=== PATIENT | male | born 1955 | race Caucasian/White ===

== ENCOUNTER 2021-10-13 20:14 | Inpatient (IN) | payer OTHER ==
[2021-10-13 20:56] LABS: Hemoglobin 15.4 g/dL (13.5-17.5); Mean Corpuscular HGB CONC 32.6 g/dL (32.0-36.0); Mean Corpuscular Hemoglobin 30.3 pg (27.0-33.0); Mean Corpuscular Volume 93.1 fl (81.2-95.1); Mean Platelet Volume 10.4 fl (7.4-10.4); Platelet Count 102 10x3/uL (150-450); RBC Distribution Width 14.9 % (11.5-14.5); Red Blood Cell (RBC) Count 5.08 10x6/uL (4.32-5.72); White Blood Cell (WBC) Count 4.5 10x3/uL (3.5-10.5)
[2021-10-13 21:05] LABS: ALT (SGPT) 24 U/L (8-55); AST (SGOT) 33 U/L (5-34); Albumin 3.4 g/dL (3.4-4.8); Alkaline Phosphatase 81 U/L (40-110); Anion Gap 10 mmol/L (10-20); BUN (Urea Nitrogen) 21 mg/dL (8.4-25.7); Bilirubin, Total 0.8 mg/dL (0.2-1.2); Calc. Creatinine Clearance 0 mL/min (70-130); Calcium 8.7 mg/dL (7.8-10.44); Carbon Dioxide 23 mmol/L (23-31); Chloride 108 mmol/L (98-107); Globulin 3.9 g/dL (2.4-3.5); Glucose 103 mg/dL (80-115); Protein, Total 7.3 g/dL (5.8-8.1); Sodium 137 mmol/L (136-145)
[2021-10-13 21:22] LABS: SARS-CoV-2 NAA Rapid Test DETECTED (NotDetected)
[2021-10-13 21:36] LABS: MDiff Complete? YES
[2021-10-13 21:38] LABS: Bilirubin Neg (Negative); Blood, Urine 50 (Negative); Clarity Clear (Clear); Glucose, Urine (Dipstick) Normal (Negative); Ketone, Urine Negative (Negative); Leukocyte Negative (Negative); Nitrite Negative (Negative); Protein, Urine (Dipstick) 100 mg/dl (Neg-Trace); Specific Gravity, Urine 1.025 (1.002-1.036); Urobilinogen Normal mg/dL (Less than 2)
[2021-10-13 21:44] LABS: Lymphocytes 18 % (21-51); Monocytes 34 % (0-10); Neutrophil 47 % (42-75); Nucleated RBC 1 % (0)
[2021-10-13 21:45] LABS: Anisocytosis SLIGHT = 6-15 cells (100X) (0-5/hpf)
[2021-10-13 21:46] LABS: Platelet Morphology Comment Appears Decreased
[2021-10-13 21:46] LABS: Bacteria/HPF Rare-Few HPF (None Seen); Mucous/LPF 1+ LPF (<2+); RBC/HPF 0-3 HPF (0-3); Squamous Epithelial 0-3 HPF (0-3); WBC/HPF 0-3 HPF (0-3)
[2021-10-13 21:47] LABS: Reflex for Review?? YES
[2021-10-13 22:22] LABS: INR-International Normal Ratio 2.2; PTT 36.2 sec (22.0-33.0); Prothrombin Time 23.5 sec (9.5-12.1)
[2021-10-13] MEDS ORDERED: Dexamethasone 10 MG/ML VIAL ONE (23:27)
[2021-10-14] MEDS ORDERED: Acetaminophen 325 MG TAB PO PRN (00:02)
[2021-10-14] MEDS ORDERED: Aspirin 81 mg Enteric Coated Tablet PO SCH (00:15)
[2021-10-14] MEDS ORDERED: Cholecalciferol 1,000 UNITS (25 MCG) TAB PO SCH (00:30)
[2021-10-14] MEDS ORDERED: Sodium Chloride 0.9% 1,000 ML IV SCH (00:30)
[2021-10-14] MEDS ORDERED: Ascorbic Acid 500 mg Chewable Tablet PO SCH (00:30)
[2021-10-14] MEDS ORDERED: Zinc Sulfate 220 MG CAP PO SCH (00:30)
[2021-10-14 00:47] VITALS: BMI 36.5
[2021-10-14 05:47] LABS: #Monocytes 0.3 10x3/uL (0.0-1.1); #Neutrophils 2.3 10x3/uL (1.5-8.4); %Basophils 0.5 % (0.0-2.0); %Lymphocytes 28.2 % (18.0-47.0); %Monocytes 8.8 % (0.0-10.0); %Neutrophils 62.2 % (40.0-75.0); Hemoglobin 16.1 g/dL (13.5-17.5); Mean Corpuscular HGB CONC 32.2 g/dL (32.0-36.0); Mean Corpuscular Hemoglobin 30.3 pg (27.0-33.0); Mean Platelet Volume 10.7 fl (7.4-10.4); Platelet Count 98 10x3/uL (150-450); Red Blood Cell (RBC) Count 5.32 10x6/uL (4.32-5.72); White Blood Cell (WBC) Count 3.7 10x3/uL (3.5-10.5)
[2021-10-14 05:58] LABS: Anion Gap 12 mmol/L (10-20); BUN (Urea Nitrogen) 21 mg/dL (8.4-25.7); CRP (Inflammatory) 0.81 mg/dL (= or < 0.5); Calc. Creatinine Clearance 85 mL/min (70-130); Calcium 9.1 mg/dL (7.8-10.44); Carbon Dioxide 22 mmol/L (23-31); Chloride 107 mmol/L (98-107); Glucose 178 mg/dL (80-115); Magnesium 1.9 mg/dL (1.6-2.6); Potassium 4.5 mmol/L (3.5-5.1); Sodium 136 mmol/L (136-145)
[2021-10-14] MEDS: Mometasone 200 MCG/PUFF (1 INHALER) INH SCH ×2 (07:20→19:40)
[2021-10-14] MEDS ORDERED: Enoxaparin Sodium 40 MG/0.4 ML SYRINGE SC SCH (09:00)
[2021-10-14] MEDS: Dexamethasone 4 mg/ml Vial SLOW IVP SCH (09:33)
[2021-10-14] MEDS: Aspirin 81 mg Enteric Coated Tablet PO SCH (09:33)
[2021-10-14] MEDS: Ascorbic Acid 500 mg Chewable Tablet PO SCH (09:33)
[2021-10-14] MEDS: Furosemide 20 MG TAB PO SCH ×2 (09:34→22:02)
[2021-10-14] MEDS: Metoprolol Tartrate 50 MG TAB PO SCH ×2 (09:34→22:02)
[2021-10-14] MEDS: Zinc Sulfate 220 MG CAP PO SCH (09:34)
[2021-10-14] MEDS ORDERED: REMDESIVIR 200 MG in Sodium Chloride 0.9% 250 ML 210 ML IV SCH (11:00)
[2021-10-14] MEDS: Warfarin Sodium 2.5 MG TAB PO SCH (17:26)
[2021-10-14] MEDS: Cholecalciferol 1,000 UNITS (25 MCG) TAB PO SCH (22:02)
[2021-10-14] MEDS: Terazosin HCl 5 MG CAP PO SCH (22:02)
[2021-10-14] MEDS: Atorvastatin Calcium 40 MG TAB PO SCH (22:02)
[2021-10-15 05:12] LABS: #Monocytes 1.2 10x3/uL (0.0-1.1); #Neutrophils 7.9 10x3/uL (1.5-8.4); %Basophils 0.2 % (0.0-2.0); %Lymphocytes 12.8 % (18.0-47.0); %Monocytes 11.5 % (0.0-10.0); %Neutrophils 75.3 % (40.0-75.0); Hemoglobin 17.2 g/dL (13.5-17.5); INR-International Normal Ratio 1.9; Mean Corpuscular HGB CONC 32.6 g/dL (32.0-36.0); Mean Corpuscular Hemoglobin 30.6 pg (27.0-33.0); Mean Corpuscular Volume 93.6 fl (81.2-95.1); Mean Platelet Volume 10.5 fl (7.4-10.4); PTT 33.3 sec (22.0-33.0); Platelet Count 111 10x3/uL (150-450); Prothrombin Time 20.5 sec (9.5-12.1); RBC Distribution Width 15.3 % (11.5-14.5); Red Blood Cell (RBC) Count 5.63 10x6/uL (4.32-5.72); White Blood Cell (WBC) Count 10.4 10x3/uL (3.5-10.5)
[2021-10-15 05:17] LABS: Phosphorus 3.8 mg/dL (2.3-4.7)
[2021-10-15 05:45] LABS: ALT (SGPT) 27 U/L (8-55); AST (SGOT) 38 U/L (5-34); Albumin 3.9 g/dL (3.4-4.8); Alkaline Phosphatase 87 U/L (40-110); Anion Gap 15 mmol/L (10-20); BUN (Urea Nitrogen) 25 mg/dL (8.4-25.7); Bilirubin, Total 0.6 mg/dL (0.2-1.2); Calc. Creatinine Clearance 72 mL/min (70-130); Calcium 9.2 mg/dL (7.8-10.44); Carbon Dioxide 22 mmol/L (23-31); Cardiac Risk 3.1 (Less than 4.5); Chloride 105 mmol/L (98-107); Cholesterol 119 mg/dl (< 200 Desired); Globulin 4.8 g/dL (2.4-3.5); Glucose 124 mg/dL (80-115); HDL Cholesterol 38 mg/dL (>60 Neg Risk); LDL Cholesterol, Calculated 67 mg/dL; Potassium 4.5 mmol/L (3.5-5.1); Protein, Total 8.7 g/dL (5.8-8.1); Sodium 137 mmol/L (136-145); Triglycerides 68 mg/dL (Less than 150)
[2021-10-15] MEDS: Mometasone 200 MCG/PUFF (1 INHALER) INH SCH ×2 (07:32→19:30)
[2021-10-15] MEDS: Dexamethasone 4 mg/ml Vial SLOW IVP SCH (09:20)
[2021-10-15] MEDS: Furosemide 20 MG TAB PO SCH ×2 (09:20→21:57)
[2021-10-15] MEDS: Metoprolol Tartrate 50 MG TAB PO SCH ×2 (09:20→21:57)
[2021-10-15] MEDS: Ascorbic Acid 500 mg Chewable Tablet PO SCH (09:20)
[2021-10-15] MEDS: Aspirin 81 mg Enteric Coated Tablet PO SCH (09:20)
[2021-10-15] MEDS: Zinc Sulfate 220 MG CAP PO SCH (09:21)
[2021-10-15 12:08] LABS: Hemoglobin A1c 6.3 % (4.0-6.0)
[2021-10-15] MEDS: REMDESIVIR 100 MG, Admixture Fee 1 EACH in Sodium Chloride 0.9% 250 ML 230 ML IV SCH (13:34)
[2021-10-15] MEDS: Warfarin Sodium 2.5 MG TAB PO SCH (17:43)
[2021-10-15] MEDS: Atorvastatin Calcium 40 MG TAB PO SCH (21:57)
[2021-10-15] MEDS: Terazosin HCl 5 MG CAP PO SCH (21:57)
[2021-10-15] MEDS: Cholecalciferol 1,000 UNITS (25 MCG) TAB PO SCH (21:57)
[2021-10-15] MEDS: cefTRIAXone\\ROCEPHIN 1 GM in Sodium Chloride 0.9% 100 ML IVPB SCH (21:57)
[2021-10-16 05:43] LABS: PTT 34.7 sec (22.0-33.0); Prothrombin Time 21.9 sec (9.5-12.1)
[2021-10-16 05:50] LABS: ALT (SGPT) 24 U/L (8-55); AST (SGOT) 32 U/L (5-34); Albumin 3.4 g/dL (3.4-4.8); Alkaline Phosphatase 85 U/L (40-110); Anion Gap 15 mmol/L (10-20); BUN (Urea Nitrogen) 29 mg/dL (8.4-25.7); Bilirubin, Total 0.4 mg/dL (0.2-1.2); CRP (Inflammatory) 0.53 mg/dL (= or < 0.5); Calc. Creatinine Clearance 86 mL/min (70-130); Calcium 8.8 mg/dL (7.8-10.44); Carbon Dioxide 20 mmol/L (23-31); Chloride 108 mmol/L (98-107); Globulin 4.1 g/dL (2.4-3.5); Glucose 121 mg/dL (80-115); Potassium 4.2 mmol/L (3.5-5.1); Protein, Total 7.5 g/dL (5.8-8.1); Sodium 139 mmol/L (136-145)
[2021-10-16 05:55] LABS: Platelet Count 106 10x3/uL (150-450)
[2021-10-16 05:56] LABS: #Neutrophils 8.4 10x3/uL (1.5-8.4); %Basophils 0.1 % (0.0-2.0); %Lymphocytes 14.6 % (18.0-47.0); %Monocytes 8.9 % (0.0-10.0); %Neutrophils 76.1 % (40.0-75.0); Hemoglobin 16.8 g/dL (13.5-17.5); Mean Corpuscular HGB CONC 32.5 g/dL (32.0-36.0); Mean Corpuscular Hemoglobin 30.6 pg (27.0-33.0); Mean Corpuscular Volume 94.2 fl (81.2-95.1); Mean Platelet Volume 11.4 fl (7.4-10.4); Phosphorus 3.2 mg/dL (2.3-4.7); RBC Distribution Width 15.8 % (11.5-14.5); Red Blood Cell (RBC) Count 5.49 10x6/uL (4.32-5.72); White Blood Cell (WBC) Count 11.1 10x3/uL (3.5-10.5)
[2021-10-16] MEDS: Mometasone 200 MCG/PUFF (1 INHALER) INH SCH ×2 (08:20→21:00)
[2021-10-16] MEDS: Ascorbic Acid 500 mg Chewable Tablet PO SCH (10:01)
[2021-10-16] MEDS: Zinc Sulfate 220 MG CAP PO SCH (10:01)
[2021-10-16] MEDS: Aspirin 81 mg Enteric Coated Tablet PO SCH (10:01)
[2021-10-16] MEDS: Furosemide 20 MG TAB PO SCH ×2 (10:01→21:25)
[2021-10-16] MEDS: Dexamethasone 4 mg/ml Vial SLOW IVP SCH (10:01)
[2021-10-16] MEDS: Metoprolol Tartrate 50 MG TAB PO SCH ×2 (10:02→21:25)
[2021-10-16] MEDS: REMDESIVIR 100 MG, Admixture Fee 1 EACH in Sodium Chloride 0.9% 250 ML 230 ML IV SCH (12:49)
[2021-10-16] MEDS ORDERED: Tamsulosin HCl 0.4 MG CAP PO SCH (14:30)
[2021-10-16] MEDS: Warfarin Sodium 2.5 MG TAB PO SCH (18:02)
[2021-10-16] MEDS: Cholecalciferol 1,000 UNITS (25 MCG) TAB PO SCH (21:25)
[2021-10-16] MEDS: Atorvastatin Calcium 40 MG TAB PO SCH (21:25)
[2021-10-16] MEDS: Terazosin HCl 5 MG CAP PO SCH (21:25)
[2021-10-16] MEDS: cefTRIAXone\\ROCEPHIN 1 GM in Sodium Chloride 0.9% 100 ML IVPB SCH (21:32)
[2021-10-17 05:05] LABS: PTT 34.1 sec (22.0-33.0); Prothrombin Time 21.1 sec (9.5-12.1)
[2021-10-17 05:17] LABS: ALT (SGPT) 24 U/L (8-55); AST (SGOT) 29 U/L (5-34); Albumin 3.1 g/dL (3.4-4.8); Alkaline Phosphatase 83 U/L (40-110); Anion Gap 13 mmol/L (10-20); BUN (Urea Nitrogen) 29 mg/dL (8.4-25.7); Bilirubin, Total 0.4 mg/dL (0.2-1.2); Calc. Creatinine Clearance 86 mL/min (70-130); Calcium 8.5 mg/dL (7.8-10.44); Carbon Dioxide 22 mmol/L (23-31); Chloride 111 mmol/L (98-107); Globulin 4.1 g/dL (2.4-3.5); Glucose 137 mg/dL (80-115); Potassium 4.4 mmol/L (3.5-5.1); Protein, Total 7.2 g/dL (5.8-8.1); Sodium 142 mmol/L (136-145)
[2021-10-17 05:18] LABS: #Neutrophils 7.8 10x3/uL (1.5-8.4); %Basophils 0.2 % (0.0-2.0); %Lymphocytes 13.9 % (18.0-47.0); %Monocytes 9.6 % (0.0-10.0); Hemoglobin 17.2 g/dL (13.5-17.5); Mean Corpuscular HGB CONC 32.6 g/dL (32.0-36.0); Mean Corpuscular Hemoglobin 30.6 pg (27.0-33.0); Mean Corpuscular Volume 93.8 fl (81.2-95.1); Mean Platelet Volume 11.5 fl (7.4-10.4); Platelet Count 106 10x3/uL (150-450); RBC Distribution Width 15.6 % (11.5-14.5); Red Blood Cell (RBC) Count 5.63 10x6/uL (4.32-5.72); White Blood Cell (WBC) Count 10.3 10x3/uL (3.5-10.5)
[2021-10-17] MEDS: Mometasone 200 MCG/PUFF (1 INHALER) INH SCH (07:19)
[2021-10-17] MEDS ORDERED: FLU VACC QS2021-22(65YR UP)/PF 240 MCG/0.7 ML SYRINGE IM ONE (08:00)
[2021-10-17] MEDS: Ascorbic Acid 500 mg Chewable Tablet PO SCH (09:56)
[2021-10-17] MEDS: Zinc Sulfate 220 MG CAP PO SCH (09:56)
[2021-10-17] MEDS: Furosemide 20 MG TAB PO SCH (09:56)
[2021-10-17] MEDS: Aspirin 81 mg Enteric Coated Tablet PO SCH (09:56)
[2021-10-17] MEDS: Metoprolol Tartrate 50 MG TAB PO SCH (11:04)
[2021-10-17] MEDS: REMDESIVIR 100 MG, Admixture Fee 1 EACH in Sodium Chloride 0.9% 250 ML 230 ML IV SCH (11:04)
[2021-10-17] MEDS: Warfarin Sodium 2.5 MG TAB PO SCH (17:55)
[2021-10-17 18:06] VITALS: BP 154/96; TEMP 97.9
== END 2021-10-17 18:36 | disposition home or self-care (01) | DRG 177 ==
LOC: CSHERS 20:14 → CSHTELE 10-14 00:16
PROVIDERS: ADMIT Family Medicine; ATTEND Family Medicine
PROC: XW033E5 Introduction of Remdesivir Anti-infective into Peripheral Vein, Percutaneous Approach, New Technology Group 5 (ICD-10-PCS; principal; 2021-10-14)
PROC: 8E0ZXY6 Isolation (ICD-10-PCS; 2021-10-14)
DX: U07.1 COVID-19 (principal); J12.82 Pneumonia due to coronavirus disease 2019; J96.01 Acute respiratory failure with hypoxia; I48.92 Unspecified atrial flutter; N17.9 Acute kidney failure, unspecified; N39.0 Urinary tract infection, site not specified; I10 Essential (primary) hypertension; E78.5 Hyperlipidemia, unspecified; I48.91 Unspecified atrial fibrillation; B96.4 Proteus (mirabilis) (morganii) as the cause of diseases classified elsewhere; D69.6 Thrombocytopenia, unspecified; Z79.01 Long term (current) use of anticoagulants; Z79.899 Other long term (current) drug therapy; Z86.73 Personal history of transient ischemic attack (TIA), and cerebral infarction without residual deficits
CPT/HCPCS: 0240U; 36415; 36416; 71045; 71275; 76770; 80048; 80053; 80061; 81003; 81015; 83036; 83605; 83735; 84100; 84145; 85025; 85060; 85610; 85730; 86140; 87040; 87077; 87086; 87186; 93005; 93010; 93306; 94664; 94760; 96374; J0696; J1100; J3490; J7050

== ENCOUNTER 2022-03-25 14:09 | Inpatient (IN) | payer OTHER ==
[2022-03-25 14:32] LABS: #Eosinphils 0.1 10x3/uL (0.0-0.5); #Monocytes 0.9 10x3/uL (0.0-1.1); #Neutrophils 3.6 10x3/uL (1.5-8.4); %Basophils 0.5 % (0.0-2.0); %Eosinophils 1.2 % (0.0-6.0); %Lymphocytes 27.6 % (18.0-47.0); %Monocytes 14.3 % (0.0-10.0); %Neutrophils 56.2 % (40.0-75.0); Hemoglobin 15.7 g/dL (13.5-17.5); Mean Corpuscular HGB CONC 33.5 g/dL (32.0-36.0); Mean Corpuscular Hemoglobin 30.7 pg (27.0-33.0); Mean Corpuscular Volume 91.6 fl (81.2-95.1); Mean Platelet Volume 10.6 fl (7.4-10.4); Platelet Count 121 10x3/uL (150-450); RBC Distribution Width 14.8 % (11.5-14.5); Red Blood Cell (RBC) Count 5.11 10x6/uL (4.32-5.72); White Blood Cell (WBC) Count 6.5 10x3/uL (3.5-10.5)
[2022-03-25 14:48] LABS: ALT (SGPT) 18 U/L (8-55); Albumin 3.9 g/dL (3.4-4.8); Alkaline Phosphatase 96 U/L (40-110); Anion Gap 15 mmol/L (10-20); BUN (Urea Nitrogen) 16 mg/dL (8.4-25.7); Bilirubin, Total 1.7 mg/dL (0.2-1.2); Calc. Creatinine Clearance 0 mL/min (70-130); Calcium 9.1 mg/dL (7.8-10.44); Carbon Dioxide 23 mmol/L (23-31); Chloride 109 mmol/L (98-107); Glucose 99 mg/dL (80-115); Potassium 4.2 mmol/L (3.5-5.1); Protein, Total 7.9 g/dL (5.8-8.1); Sodium 143 mmol/L (136-145)
[2022-03-25 14:58] LABS: Acetaminophen Less than 10.0 mcg/mL (10.0-30.0); Alcohol Less than 10 mg/dL (Less than 10); Salicylate Less than 8.0 mg/dL (15.0-30.0)
[2022-03-25 15:00] LABS: AST (SGOT) 27 U/L (5-34)
[2022-03-25 15:06] LABS: PTT 36.2 sec (22.0-33.0); Prothrombin Time 31.1 sec (9.5-12.1)
[2022-03-25 15:14] LABS: CKMB 7.2 ng/mL (0-6.6)
[2022-03-25 15:32] LABS: SARS-CoV-2 NAA Rapid Test Not Detected (NotDetected)
[2022-03-25 17:36] LABS: Bilirubin Neg (Negative); Blood, Urine 25 (Negative); Clarity Clear (Clear); Glucose, Urine (Dipstick) Normal (Negative); Ketone, Urine Negative (Negative); Leukocyte Negative (Negative); Nitrite Negative (Negative); Protein, Urine (Dipstick) 30 mg/dl (Neg-Trace); Specific Gravity, Urine 1.015 (1.002-1.036); Urobilinogen Normal mg/dL (Less than 2)
[2022-03-25] MEDS ORDERED: Aspirin Chewable 81 MG TAB ONE (17:36)
[2022-03-25] MEDS ORDERED: Furosemide 40 MG/4 ML VIAL ONE (17:36)
[2022-03-25 17:44] LABS: Amphetamine Not Detected (NotDetected); Barbiturates Screen Not Detected (NotDetected); Benzodiazepine Screen Not Detected (NotDetected); Cocaine Metabolite Screen Not Detected (NotDetected); Methadone Not Detected (NotDetected); Methamphetamine Not Detected (NotDetected); Opiate Screen Not Detected (NotDetected); Oxycodone Screen Not Detected (NotDetected); Phencyclidine (PCP) Not Detected (NotDetected); THC/Cannabinoid Screen Not Detected (NotDetected); Tricyclic Screen Not Detected (NotDetected)
[2022-03-25 17:49] LABS: Bacteria/HPF None Seen HPF (None Seen); RBC/HPF None Seen HPF (0-3); Squamous Epithelial 0-3 HPF (0-3); WBC/HPF None Seen HPF (0-3)
[2022-03-25 18:30] LABS: CKMB 7.1 ng/mL (0-6.6)
[2022-03-25] MEDS ORDERED: Acetaminophen 325 MG TAB PO PRN (18:40)
[2022-03-25] MEDS: cefTRIAXone\\ROCEPHIN 1 GM in Sodium Chloride 0.9% 100 ML IVPB SCH (20:27)
[2022-03-25] MEDS: methylPREDNISolone Sod Succ 40 MG VIAL IVP SCH (20:31)
[2022-03-25] MEDS: Atorvastatin Calcium 40 MG TAB PO SCH (20:32)
[2022-03-25 20:41] VITALS: BMI 33.0
[2022-03-25] MEDS ORDERED: Doxycycline 100 MG CAP PO SCH (21:00)
[2022-03-26 05:37] LABS: Anion Gap 17 mmol/L (10-20); BUN (Urea Nitrogen) 18 mg/dL (8.4-25.7); Calc. Creatinine Clearance 85 mL/min (70-130); Calcium 9.3 mg/dL (7.8-10.44); Carbon Dioxide 21 mmol/L (23-31); Chloride 108 mmol/L (98-107); Glucose 143 mg/dL (80-115); INR-International Normal Ratio 2.8; Potassium 3.9 mmol/L (3.5-5.1); Prothrombin Time 29.1 sec (9.5-12.1); Sodium 142 mmol/L (136-145)
[2022-03-26 05:38] LABS: #Monocytes 0.1 10x3/uL (0.0-1.1); #Neutrophils 6.9 10x3/uL (1.5-8.4); %Basophils 0.1 % (0.0-2.0); %Lymphocytes 10.7 % (18.0-47.0); %Monocytes 1.6 % (0.0-10.0); %Neutrophils 87.3 % (40.0-75.0); Hemoglobin 16.1 g/dL (13.5-17.5); Mean Corpuscular HGB CONC 33.9 g/dL (32.0-36.0); Mean Corpuscular Hemoglobin 31.7 pg (27.0-33.0); Mean Corpuscular Volume 93.5 fl (81.2-95.1); Mean Platelet Volume 11.3 fl (7.4-10.4); Platelet Count 126 10x3/uL (150-450); RBC Distribution Width 14.6 % (11.5-14.5); Red Blood Cell (RBC) Count 5.08 10x6/uL (4.32-5.72)
[2022-03-26] MEDS ORDERED: Furosemide 20 MG/2 ML VIAL SLOW IVP SCH (06:00)
[2022-03-26] MEDS: Furosemide 20 MG/2 ML VIAL SLOW IVP SCH ×2 (06:41→14:34)
[2022-03-26] MEDS ORDERED: Albuterol Sulfate 1.25 MG/3 ML NEB NEB PRN (08:04)
[2022-03-26] MEDS: Aspirin 81 mg Enteric Coated Tablet PO SCH (09:04)
[2022-03-26] MEDS: methylPREDNISolone Sod Succ 40 MG VIAL IVP SCH ×2 (09:05→20:42)
[2022-03-26] MEDS: cefTRIAXone\\ROCEPHIN 1 GM in Sodium Chloride 0.9% 100 ML IVPB SCH (20:42)
[2022-03-26] MEDS: Atorvastatin Calcium 40 MG TAB PO SCH (20:42)
[2022-03-27 05:13] LABS: #Monocytes 0.5 10x3/uL (0.0-1.1); #Neutrophils 11.8 10x3/uL (1.5-8.4); %Basophils 0.1 % (0.0-2.0); %Monocytes 3.4 % (0.0-10.0); Hemoglobin 16.5 g/dL (13.5-17.5); Mean Corpuscular HGB CONC 33.3 g/dL (32.0-36.0); Mean Corpuscular Volume 92.9 fl (81.2-95.1); Mean Platelet Volume 11.4 fl (7.4-10.4); Platelet Count 142 10x3/uL (150-450); RBC Distribution Width 14.4 % (11.5-14.5); Red Blood Cell (RBC) Count 5.33 10x6/uL (4.32-5.72); White Blood Cell (WBC) Count 13.3 10x3/uL (3.5-10.5)
[2022-03-27 05:33] LABS: Anion Gap 13 mmol/L (10-20); BUN (Urea Nitrogen) 22 mg/dL (8.4-25.7); Calc. Creatinine Clearance 92 mL/min (70-130); Calcium 9.4 mg/dL (7.8-10.44); Carbon Dioxide 24 mmol/L (23-31); Chloride 108 mmol/L (98-107); Glucose 139 mg/dL (80-115); Potassium 4.4 mmol/L (3.5-5.1); Sodium 141 mmol/L (136-145)
[2022-03-27 05:37] LABS: INR-International Normal Ratio 3.2; Prothrombin Time 32.9 sec (9.5-12.1)
[2022-03-27] MEDS: Furosemide 20 MG/2 ML VIAL SLOW IVP SCH ×2 (06:23→15:00)
[2022-03-27] MEDS: Aspirin 81 mg Enteric Coated Tablet PO SCH (10:59)
[2022-03-27] MEDS: methylPREDNISolone Sod Succ 40 MG VIAL IVP SCH ×2 (10:59→21:23)
[2022-03-27] MEDS ORDERED: Metoprolol Tartrate 25 MG TAB PO SCH (11:00)
[2022-03-27] MEDS: cefTRIAXone\\ROCEPHIN 1 GM in Sodium Chloride 0.9% 100 ML IVPB SCH (21:22)
[2022-03-27] MEDS: Metoprolol Tartrate 50 MG TAB PO SCH (21:23)
[2022-03-27] MEDS: Atorvastatin Calcium 40 MG TAB PO SCH (21:23)
[2022-03-28 05:16] LABS: #Monocytes 0.8 10x3/uL (0.0-1.1); #Neutrophils 14.4 10x3/uL (1.5-8.4); %Basophils 0.1 % (0.0-2.0); %Lymphocytes 7.3 % (18.0-47.0); %Monocytes 4.8 % (0.0-10.0); %Neutrophils 87.1 % (40.0-75.0); Hemoglobin 17.2 g/dL (13.5-17.5); Mean Corpuscular HGB CONC 33.4 g/dL (32.0-36.0); Mean Corpuscular Hemoglobin 30.9 pg (27.0-33.0); Mean Corpuscular Volume 92.6 fl (81.2-95.1); Platelet Count 148 10x3/uL (150-450); RBC Distribution Width 15.1 % (11.5-14.5); Red Blood Cell (RBC) Count 5.56 10x6/uL (4.32-5.72); White Blood Cell (WBC) Count 16.5 10x3/uL (3.5-10.5)
[2022-03-28 05:29] LABS: Anion Gap 14 mmol/L (10-20); BUN (Urea Nitrogen) 34 mg/dL (8.4-25.7); Calc. Creatinine Clearance 77 mL/min (70-130); Calcium 9.6 mg/dL (7.8-10.44); Carbon Dioxide 26 mmol/L (23-31); Chloride 106 mmol/L (98-107); Glucose 143 mg/dL (80-115); Potassium 4.1 mmol/L (3.5-5.1); Sodium 142 mmol/L (136-145)
[2022-03-28] MEDS: Furosemide 20 MG/2 ML VIAL SLOW IVP SCH ×2 (06:44→17:30)
[2022-03-28] MEDS: methylPREDNISolone Sod Succ 40 MG VIAL IVP SCH ×2 (09:56→22:14)
[2022-03-28] MEDS: Aspirin 81 mg Enteric Coated Tablet PO SCH (09:56)
[2022-03-28] MEDS: Metoprolol Tartrate 50 MG TAB PO SCH (09:56)
[2022-03-28 13:52] LABS: INR-International Normal Ratio 2.2; Prothrombin Time 22.6 sec (9.5-12.1)
[2022-03-28 13:54] LABS: Magnesium 2.4 mg/dL (1.6-2.6)
[2022-03-28] MEDS: Carvedilol 12.5 MG TAB PO SCH (17:30)
[2022-03-28] MEDS: Warfarin Sodium 2.5 MG TAB PO SCH (17:46)
[2022-03-28] MEDS: Atorvastatin Calcium 40 MG TAB PO SCH (22:15)
[2022-03-29 04:51] LABS: INR-International Normal Ratio 1.9; Prothrombin Time 19.9 sec (9.5-12.1)
[2022-03-29 05:05] LABS: Hemoglobin 17.7 g/dL (13.5-17.5); Mean Corpuscular HGB CONC 34.3 g/dL (32.0-36.0); Mean Corpuscular Hemoglobin 31.6 pg (27.0-33.0); Mean Corpuscular Volume 92.1 fl (81.2-95.1); Mean Platelet Volume 10.9 fl (7.4-10.4); Platelet Count 144 10x3/uL (150-450); RBC Distribution Width 14.8 % (11.5-14.5); White Blood Cell (WBC) Count 13.8 10x3/uL (3.5-10.5)
[2022-03-29 06:14] LABS: Anion Gap 15 mmol/L (10-20); BUN (Urea Nitrogen) 41 mg/dL (8.4-25.7); Calc. Creatinine Clearance 70 mL/min (70-130); Calcium 9.4 mg/dL (7.8-10.44); Carbon Dioxide 27 mmol/L (23-31); Chloride 105 mmol/L (98-107); Glucose 153 mg/dL (80-115); Potassium 3.8 mmol/L (3.5-5.1); Sodium 143 mmol/L (136-145)
[2022-03-29 06:47] LABS: MDiff Complete? YES
[2022-03-29] MEDS: Furosemide 20 MG/2 ML VIAL SLOW IVP SCH (06:48)
[2022-03-29 06:49] LABS: Band 1 % (5-11); Lymphocytes 7 % (21-51); Monocytes 3 % (0-10); Neutrophil 88 % (42-75); Reactive Lymphocytes 1 % (0-10)
[2022-03-29 06:51] LABS: Platelet Morphology Comment Appears Adequate; RBC Morphology Normal
[2022-03-29] MEDS: methylPREDNISolone Sod Succ 40 MG VIAL IVP SCH (08:39)
[2022-03-29] MEDS: Amlodipine 5 MG TAB PO SCH (08:39)
[2022-03-29] MEDS: Carvedilol 12.5 MG TAB PO SCH (08:39)
[2022-03-29] MEDS: Warfarin Sodium 2.5 MG TAB PO SCH (16:41)
[2022-03-29] MEDS: Carvedilol 25 MG TAB PO SCH (16:41)
[2022-03-29] MEDS: Atorvastatin Calcium 40 MG TAB PO SCH (20:03)
[2022-03-30 04:55] LABS: INR-International Normal Ratio 2.6; Prothrombin Time 26.5 sec (9.5-12.1)
[2022-03-30 05:03] LABS: Anion Gap 12 mmol/L (10-20); BUN (Urea Nitrogen) 47 mg/dL (8.4-25.7); Calc. Creatinine Clearance 70 mL/min (70-130); Calcium 9.2 mg/dL (7.8-10.44); Carbon Dioxide 28 mmol/L (23-31); Chloride 105 mmol/L (98-107); Glucose 179 mg/dL (80-115); Potassium 3.3 mmol/L (3.5-5.1); Sodium 142 mmol/L (136-145)
[2022-03-30] MEDS ORDERED: Furosemide 40 MG TAB PO SCH (07:30)
[2022-03-30] MEDS ORDERED: Potassium Chloride 20 MEQ TAB PO SCH (07:34)
[2022-03-30] MEDS: Amlodipine 5 MG TAB PO SCH (08:25)
[2022-03-30] MEDS: Carvedilol 25 MG TAB PO SCH (08:25)
[2022-03-30 11:55] VITALS: BP 138/79; TEMP 97.6
== END 2022-03-30 13:31 | disposition home or self-care (01) | DRG 280 ==
LOC: EEVIPCON 14:09 → CSHERS 14:09 → CSHTELE 17:48 → OBSVTOIN 03-28 11:28
PROVIDERS: ADMIT Internal Medicine; ATTEND Internal Medicine
DX: I11.0 Hypertensive heart disease with heart failure (principal); J96.01 Acute respiratory failure with hypoxia; I21.A1 Myocardial infarction type 2; I47.1 Supraventricular tachycardia; N39.0 Urinary tract infection, site not specified; J44.1 Chronic obstructive pulmonary disease with (acute) exacerbation; I48.19 Other persistent atrial fibrillation; E78.5 Hyperlipidemia, unspecified; D72.829 Elevated white blood cell count, unspecified; N28.9 Disorder of kidney and ureter, unspecified; T38.0X5A Adverse effect of glucocorticoids and synthetic analogues, initial encounter; N40.0 Benign prostatic hyperplasia without lower urinary tract symptoms; I50.9 Heart failure, unspecified; Z20.822 Contact with and (suspected) exposure to COVID-19; Z87.891 Personal history of nicotine dependence; Z79.82 Long term (current) use of aspirin; Z79.01 Long term (current) use of anticoagulants; Z79.899 Other long term (current) drug therapy; Z82.49 Family history of ischemic heart disease and other diseases of the circulatory system; Z83.3 Family history of diabetes mellitus
CPT/HCPCS: 36415; 70450; 71045; 80048; 80053; 80306; 80307; 81003; 81015; 82140; 82553; 83605; 83735; 83880; 84443; 84484; 85025; 85610; 85730; 87040; 87086; 93005; 93306; 94760; 96374; 96375; 96376; G0378; J0696; J1940; J2920; J3490; J7620; U0002

== ENCOUNTER → 2022-08-18 | Emergency (ER) | payer OTHER ==
[~2022-08-18] MED LIST: Furosemide 40 MG/4 ML VIAL ONE
[2022-08-18 22:22] LABS: #Eosinphils 0.1 10x3/uL (0.0-0.5); #Monocytes 0.6 10x3/uL (0.0-1.1); #Neutrophils 2.7 10x3/uL (1.5-8.4); %Basophils 0.4 % (0.0-2.0); %Eosinophils 2.3 % (0.0-6.0); %Lymphocytes 29.9 % (18.0-47.0); %Monocytes 12.7 % (0.0-10.0); %Neutrophils 54.5 % (40.0-75.0); Hemoglobin 15.7 g/dL (13.5-17.5); Mean Corpuscular Hemoglobin 30.8 pg (27.0-33.0); Mean Corpuscular Volume 93.3 fl (81.2-95.1); Mean Platelet Volume 11.4 fl (7.4-10.4); Platelet Count 116 10x3/uL (150-450); RBC Distribution Width 13.9 % (11.5-14.5); White Blood Cell (WBC) Count 4.9 10x3/uL (3.5-10.5)
[2022-08-18 22:32] LABS: ALT (SGPT) 13 U/L (8-55); AST (SGOT) 21 U/L (5-34); Albumin 3.9 g/dL (3.4-4.8); Alkaline Phosphatase 104 U/L (40-110); Anion Gap 11 mmol/L (10-20); BUN (Urea Nitrogen) 19 mg/dL (8.4-25.7); Bilirubin, Total 1.2 mg/dL (0.2-1.2); Calc. Creatinine Clearance 0 mL/min (70-130); Calcium 9.3 mg/dL (7.8-10.44); Carbon Dioxide 25 mmol/L (23-31); Chloride 111 mmol/L (98-107); Estimated GFR 63; Globulin 3.6 g/dL (2.4-3.5); Glucose 103 mg/dL (80-115); Potassium 4.2 mmol/L (3.5-5.1); Protein, Total 7.5 g/dL (5.8-8.1); Sodium 143 mmol/L (136-145)
[2022-08-18 22:50] LABS: Actual Bicarbonate (HCO3v) 25 mEq/L (22-28); Base Excess -0.6 mEq/L (-2.0 to +3.0); Calcium, Ionized (venous) 1.18 mmol/L (1.16-1.32); Chloride (VBG) 109 mmol/L (98-106); Critical Notified By: CP.PH; Hemoglobin (Hb) 16.7 g/dL (12.6-17.4); Potassium (VBG) 4.28 mmol/L (3.70-5.30); Puncture Site Other Site; RapidComm Collect By CP.PH; Sodium 142.2 mmol/L (133-146); pH (venous) 7.36 (7.32-7.43)
[2022-08-18 22:55] LABS: CKMB 4.9 ng/mL (0-6.6)
[2022-08-19 00:01] LABS: SARS-CoV-2 NAA Rapid Test Not Detected (NotDetected)
[2022-08-19 00:23] LABS: INR-International Normal Ratio 3.9; PTT 40.2 sec (22.0-33.0); Prothrombin Time 39.7 sec (9.5-12.1)
[2022-08-19 01:39] LABS: Platelet Morphology Comment Appears Decreased; RBC Morphology Normal
== END ==
LOC: EEVIPCON 21:34 → CSHERS 21:34
DX: I11.0 Hypertensive heart disease with heart failure (principal); I50.9 Heart failure, unspecified; E78.5 Hyperlipidemia, unspecified; E11.9 Type 2 diabetes mellitus without complications; Z87.891 Personal history of nicotine dependence; Z79.01 Long term (current) use of anticoagulants; Z79.899 Other long term (current) drug therapy; Z20.822 Contact with and (suspected) exposure to COVID-19
CPT/HCPCS: 71045; 80053; 82553; 82805; 83880; 84484; 85025; 85610; 85730; 93005; 94660; 94760; 96374; J1940; U0002